=== PATIENT | male | born 1985 | race Caucasian/White ===

== ENCOUNTER → 2025-06-05 | Outpatient (CLI) | payer OTHER, SELFPAY ==
--- NOTE | 2025-06-05 17:00 | MRI_ITS ---
PROCEDURE: SPINE CERVICAL (ROUTINE) 06/06/2025 REASON FOR EXAM: DISEASE OF SPINAL CORD RADICULOPATHY TECHNIQUE: Procedure Code: MRISPC Modality: MR Procedure: SPINE CERVICAL (ROUTINE) Multiplanar and multisequence images were obtained without IV contrast administration. COMPARISON: 23-May-2025 CR FINDINGS: Straightening of cervical curve denoting myospasm. No vertebral fracture/acute dislocation noted. The vertebral body heights are normal. The examined vertebral bodies and posterior neural elements appear intact with no fractures. Normal craniometric measures of the craniovertebral junction No obvious marrow degenerative signal. Modio 0. Variable degrees of reduced bright T2 signal of the intervertebral discs denoting their desiccation. C1-C2: Atlantodens interval is preserved. Odontoid process and atlantoaxial joint appear normal. C2-C3: There is no significant disc pathology. Normal morphology of the ligamentum flava. No arthropathy of the uncovertebral and zygapophyseal joints. No significant spinal canal stenosis noted. C3-C4: a 2.8 mm broad based posterior and left foraminal disc protrusion along with uncovertebral arthropathy seen indenting the cord encroaching upon the related neural exit foramina inducing moderate right and marked left exiting nerve roots compression. C4-C5: a 2.8 mm diffuse disc bulge seen indenting the cord encroaching upon the related neural exit foramina inducing moderate to marked exiting nerve roots compression. C5-C6: a 1 mm diffuse disc bulge seen indenting the theca encroaching upon the related neural exit foramina inducing mild exiting nerve roots compression. C6-C7: a 1 mm diffuse disc bulge seen indenting the theca encroaching upon the related neural exit foramina inducing mild exiting nerve roots compression. C7-T1: There is no significant disc pathology. Normal morphology of the ligamentum flava. No arthropathy of the uncovertebral and zygapophyseal joints. No significant spinal canal stenosis noted. Normal appearance of the examined cervical cord and cranio-cervical junction. No marrow infiltrative lesions. No paraspinal soft tissue masses. MRI/Spine Cervical (Routine) IMPRESSION: Straightening of cervical curve denoting myospasm. No fractures/acute dislocation noted. C3-C4: a 2.8 mm broad based posterior and left foraminal disc protrusion along with uncovertebral arthropathy inducing moderate right and marked left exiting nerve roots compression. C4-C5: a 2.8 mm diffuse disc bulge inducing moderate to marked exiting nerve ro ots compression. C5-C6: a 1 mm diffuse disc bulge inducing mild exiting nerve roots compression. C6-C7: a 1 mm diffuse disc bulge inducing mild exiting nerve roots compression. [facility]
== END | disposition home or self-care (01) ==
LOC: MRI 16:59
PROVIDERS: Referring Provider Student in an Organized Health Care Education/Training Program; Visit Provider Student in an Organized Health Care Education/Training Program
DX: G95.9 Disease of spinal cord, unspecified (principal); M54.12 Radiculopathy, cervical region
CPT/HCPCS: 72141